=== PATIENT | female | born 1975 | race African-American/Black ===

== ENCOUNTER 2019-04-14 06:31 | Day surgery (SDC) | payer OTHER ==
[2019-04-11 09:56] VITALS: BMI 39.4
[2019-04-14] MEDS ORDERED: Sodium Chloride 0.9% 0 ML ONE (06:44)
[2019-04-14] MEDS ORDERED: Levofloxacin 500 mg/D5W 100 ml Premix Bag ONE (07:10)
[2019-04-14] MEDS ORDERED: Clindamycin/D5W 900 mg/50 ml Premix Bag ONE (07:10)
[2019-04-14] MEDS ORDERED: Fentanyl 100 MCG/2 ML VIAL ONE ×3 (07:18→10:32)
[2019-04-14] MEDS ORDERED: Lidocaine 2% Jelly 5 ML TUBE ONE (07:18)
[2019-04-14 07:24] LABS: #Basophils 0.1 thou/uL (0.0-0.2); #Eosinphils 0.7 thou/uL (0.0-0.7); #Lymphocytes 4.4 thou/uL (1.20-3.40); #Monocytes 0.7 thou/uL (0.11-0.59); #Neutrophils 6.1 thou/uL (1.40-6.50); %Basophils 1.1 % (0.0-1.0); %Eosinophils 5.8 % (0.0-10.0); %Lymphocytes 36.9 % (21.0-51.0); %Monocytes 5.9 % (0.0-10.0); %Neutrophils 50.3 % (42.0-75.0); Mean Corpuscular HGB CONC 33.3 g/dL (32.0-36.0); Mean Corpuscular Hemoglobin 25.2 pg (27.0-31.0); Mean Corpuscular Volume 75.7 fL (78.0-98.0); Mean Platelet Volume 7.4 fL (7.4-10.4); Platelet Count 352 thou/uL (130-400); RBC Distribution Width 16.1 % (11.5-14.5); Red Blood Cell (RBC) Count 4.77 mill/uL (4.20-5.40)
[2019-04-14 07:34] LABS: Anion Gap 14 mmol/L (10-20); BUN (Urea Nitrogen) 11 mg/dL (7.0-18.7); Calc. Creatinine Clearance 96 mL/min (70-130); Calcium 8.9 mg/dL (7.8-10.44); Carbon Dioxide 29 mmol/L (22-29); Chloride 100 mmol/L (98-107); Estimated GFR-MDRD 60; Glucose 85 mg/dL (70-105); Potassium 3.6 mmol/L (3.5-5.1); Sodium 139 mmol/L (136-145)
[2019-04-14] MEDS ORDERED: Albuterol Sulfate HFA (OR ONLY) ONE (07:51)
[2019-04-14] MEDS ORDERED: Midazolam HCl 2 mg/2 ml Vial ONE (07:53)
[2019-04-14] MEDS ORDERED: Ketorolac Tromethamine 30 MG/ML VIAL ONE (10:00)
[2019-04-14] MEDS ORDERED: PROPOFOL 200 MG/20 ML VIAL ONE (10:00)
[2019-04-14] MEDS ORDERED: Dexamethasone 20 MG/5 ML VIAL ONE (10:00)
[2019-04-14] MEDS ORDERED: PHENYLEPHRINE-NS 100 MCG/ML 10 ML SYRINGE ONE (10:00)
[2019-04-14] MEDS ORDERED: Rocuronium Bromide 10 MG/ML (10ML VIAL) ONE (10:00)
[2019-04-14] MEDS ORDERED: ePHEDrine/0.9% NaCl/PF SYRINGE 50 mg/10 ml ONE (10:00)
[2019-04-14] MEDS ORDERED: Lidocaine 1% PF 5 ML VIAL ONE (10:00)
[2019-04-14] MEDS ORDERED: Ondansetron PF 4 MG/2 ML Vial ONE (10:00)
[2019-04-14] MEDS ORDERED: HYDROcodone/Acetaminophen 5/325 mg Tablet ONE (11:58)
--- NOTE | 2019-04-14 12:11 | OP ---
DATE OF PROCEDURE: 04/14/2019 TOURIST ADVISER: Tonya Rider PA-C PROCEDURES PERFORMED: Anterior cervical diskectomy C5-C6 and C6-C7, interbody arthrodesis, intervertebral biomechanical device, local morselized autograft, demineralized bone matrix, anterior titanium instrumentation C5-C6 and C6-C7. DESCRIPTION OF PROCEDURE: The patient was brought to the operating room and intubated. She was positioned supine with head in modest extension on a gel-filled donut. An incision in the right precervical area and dissected medial to the sternocleidomastoid muscle, identified the anterior cervical spinal, and the level was confirmed by x-ray. We placed distraction between C5 and C7 and using operative microscope and microdissection techniques, completely removed the intervertebral disks. There was less ossification of the posterior longitudinal ligament that was anticipated. There was a very large right C6-C7 disk extrusion that was removed entirely. After a complete decompression had been secured, the bony endplates were decorticated for the purpose of arthrodesis and appropriate-sized intervertebral biomechanical PEEK device was brought into the field, filled with demineralized bone matrix and local morselized autograft, and tapped in place securely at C5-C6 and C6-C7. Next, an anterior plate was brought into the field and secured to C5, C6, and C7 using two 14-mm screws at each level. The wound was then extensively irrigated. MAC hemostasis was secured, and the wound was closed in anatomic layers. Job ID: [id number]
--- NOTE | 2019-04-15 11:04 | EKG ---
Test Reason : PREOP Blood Pressure : / mmHG Vent. Rate : 095 BPM Atrial Rate : 095 BPM P-R Int : 138 ms QRS Dur : 076 ms QT Int : 352 ms P-R-T Axes : 060 030 004 degrees QTc Int : 442 ms Normal sinus rhythm Normal ECG No previous ECGs available Confirmed by DR. Beck ALVAREZ ([id number]) on 04/15/2019 11:04:01 AM Referred By: BRITTNEY Confirmed By:DR. Beck ALVAREZ
== END 2019-04-14 12:50 | disposition home or self-care (01) ==
LOC: SDC 06:31
PROVIDERS: ATTEND Neurological Surgery
PROC: 0RT30ZZ Resection of Cervical Vertebral Disc, Open Approach (ICD-10-PCS; principal; 2019-04-14)
PROC: 0RG20A0 Fusion of 2 or more Cervical Vertebral Joints with Interbody Fusion Device, Anterior Approach, Anterior Column, Open Approach (ICD-10-PCS; principal; 2019-04-14)
PROC: 0RG2070 Fusion of 2 or more Cervical Vertebral Joints with Autologous Tissue Substitute, Anterior Approach, Anterior Column, Open Approach (ICD-10-PCS; principal; 2019-04-14)
DX: M47.12 Other spondylosis with myelopathy, cervical region (principal); M48.02 Spinal stenosis, cervical region; I10 Essential (primary) hypertension; E11.9 Type 2 diabetes mellitus without complications; E78.5 Hyperlipidemia, unspecified; Z88.0 Allergy status to penicillin; Z88.1 Allergy status to other antibiotic agents
CPT/HCPCS: 76000; 80048; 85025; 93005; 93010; C1713; C1776; J0690; J1100; J1885; J1956; J2001; J2250; J2405; J2704; J3010; J3490

== ENCOUNTER 2019-04-30 10:59 | Outpatient (CLI) | payer OTHER ==
--- NOTE | 2019-04-30 11:25 | RAD ---
EXAM: XR Cerv Sp Ap Lat STANDARD PROVIDED CLINICAL HISTORY: Follow-up cervical spine surgery. COMPARISON: None FINDINGS: C1 to the cervicothoracic junction is seen on the lateral view. There are postsurgical changes relate d to anterior cervical fusion with an anterior plate and screws transfixing the C5-6 and C6-7 levels. Intradiscal prostheses are seen at each of these levels. No hardware complication is seen. Th ere is straightening of the normal cervical lordotic curvature. The vertebral body heights are within normal limits. No fracture or subluxation is seen. There is widening of the prevertebral soft tissues which could be on the basis of recent postsurgical changes. However, this difficult to further evaluate on radiographic images, and clinical correlation is recommended. IMPRESSION: 1. Widening of the prevertebral soft tissues which could be on the basis of recent postsurgical street es. Clinical correlation is recommended. Additional imaging can be performed if warranted. 2. Postsurgical changes related to anterior cervical fusion at the C5-6 and C6-7 levels.
== END 2019-04-30 11:00 | disposition home or self-care (01) ==
LOC: TBSIIMAG 10:59
PROVIDERS: ATTEND Neurological Surgery
DX: M47.12 Other spondylosis with myelopathy, cervical region (principal); M47.22 Other spondylosis with radiculopathy, cervical region; Z98.1 Arthrodesis status
CPT/HCPCS: 72040